=== PATIENT | male | born 1965 | race Hispanic/Latino ===

== ENCOUNTER 2021-09-24 07:49 | Emergency (ER) | payer SELFPAY ==
[2021-09-24 08:35] LABS: #Eosinphils 0.1 thou/uL (0.0-0.7); #Lymphocytes 0.4 thou/uL (1.20-3.40); #Monocytes 0.2 thou/uL (0.11-0.59); %Basophils 0.4 % (0.0-1.0); %Eosinophils 5.5 % (0.0-10.0); %Lymphocytes 25.2 % (21.0-51.0); %Monocytes 9.6 % (0.0-10.0); %Neutrophils 59.3 % (42.0-75.0); Hemoglobin 9.3 g/dL (14.0-18.0); Mean Corpuscular HGB CONC 33.2 g/dL (32.0-36.0); Mean Corpuscular Hemoglobin 33.8 pg (27.0-31.0); Mean Platelet Volume 8.3 fL (7.4-10.4); Platelet Count 53 thou/uL (130-400); RBC Distribution Width 15.8 % (11.5-14.5); Red Blood Cell (RBC) Count 2.74 mill/uL (4.70-6.10); White Blood Cell (WBC) Count 1.7 thou/uL (4.8-10.8)
[2021-09-24 09:15] LABS: ALT (SGPT) 9 U/L (8-55); AST (SGOT) 23 U/L (5-34); Albumin 2.2 g/dL (3.5-5.0); Alkaline Phosphatase 115 U/L (40-110); Anion Gap 10 mmol/L (10-20); BUN (Urea Nitrogen) 14 mg/dL (8.4-25.7); Bilirubin, Total 2.8 mg/dL (0.2-1.2); Calc. Creatinine Clearance 0 mL/min (70-130); Calcium 8.2 mg/dL (7.8-10.44); Carbon Dioxide 22 mmol/L (22-29); Chloride 104 mmol/L (98-107); Globulin 3.7 g/dL (2.4-3.5); Glucose 88 mg/dL (70-105); Potassium 4.3 mmol/L (3.5-5.1); Protein, Total 5.9 g/dL (6.0-8.3); Sodium 132 mmol/L (136-145)
[2021-09-24 11:47] LABS: INR-International Normal Ratio 1.9; Prothrombin Time 21.8 sec (12.0-14.7)
[2021-09-24] MEDS ORDERED: Sodium Bicarbonate 2.5 MEQ/5 ML VIAL ONE (13:39)
[2021-09-24] MEDS ORDERED: Lidocaine 1% PF 5 ML VIAL ONE (13:39)
== END 2021-09-24 15:15 | disposition home or self-care (01) ==
LOC: ERS 07:49
DX: R18.8 Other ascites (principal)
CPT/HCPCS: 36415; 49083; 80053; 85025; 85610; 85730

== ENCOUNTER 2021-10-04 08:01 | Emergency (ER) | payer SELFPAY ==
[2021-10-04 10:14] LABS: #Lymphocytes 0.3 thou/uL (1.20-3.40); #Monocytes 0.2 thou/uL (0.11-0.59); #Neutrophils 4.1 thou/uL (1.40-6.50); %Eosinophils 0.3 % (0.0-10.0); %Lymphocytes 5.8 % (21.0-51.0); %Monocytes 4.8 % (0.0-10.0); %Neutrophils 89.1 % (42.0-75.0); Hemoglobin 10.6 g/dL (14.0-18.0); Mean Corpuscular HGB CONC 32.1 g/dL (32.0-36.0); Mean Corpuscular Hemoglobin 32.2 pg (27.0-31.0); Mean Platelet Volume 9.1 fL (7.4-10.4); Platelet Count 90 thou/uL (130-400); RBC Distribution Width 15.6 % (11.5-14.5); Red Blood Cell (RBC) Count 3.28 mill/uL (4.70-6.10); White Blood Cell (WBC) Count 4.6 thou/uL (4.8-10.8)
[2021-10-04 10:26] LABS: ALT (SGPT) 9 U/L (8-55); AST (SGOT) 22 U/L (5-34); Albumin 2.3 g/dL (3.5-5.0); Alkaline Phosphatase 118 U/L (40-110); Anion Gap 13 mmol/L (10-20); BUN (Urea Nitrogen) 17 mg/dL (8.4-25.7); Bilirubin, Total 3.5 mg/dL (0.2-1.2); Calc. Creatinine Clearance 0 mL/min (70-130); Calcium 8.1 mg/dL (7.8-10.44); Carbon Dioxide 19 mmol/L (22-29); Chloride 105 mmol/L (98-107); Globulin 4.2 g/dL (2.4-3.5); Glucose 103 mg/dL (70-105); Lipase 29 U/L (8-78); Potassium 4.5 mmol/L (3.5-5.1); Protein, Total 6.5 g/dL (6.0-8.3); Sodium 132 mmol/L (136-145)
[2021-10-04 13:42] LABS: Bilirubin 1+ (Negative); Blood, Urine Negative (Negative); Clarity Turbid (Clear); Glucose, Urine (Dipstick) Normal (Negative); Ketone, Urine Trace mg/dL (Negative); Leukocyte Negative Leu/uL (Negative); Nitrite Negative (Negative); Protein, Urine (Dipstick) 50 mg/dL (Neg-Trace); Specific Gravity, Urine 1.031 (1.002-1.036); Squamous Epithelial 0-3 HPF (0-3); Urobilinogen 3 mg/dL (Less than 2); WBC/HPF 0-3 HPF (0-3)
[2021-10-04 13:50] LABS: Bacteria/HPF None Seen HPF (None Seen); Mucous/LPF 1+ LPF (<2+); RBC/HPF 0-3 HPF (0-3)
[2021-10-04] MEDS ORDERED: Lidocaine 1% w/Epinephrine 1:100K 20 ML VIAL ONE (15:01)
== END 2021-10-04 16:16 | disposition home or self-care (01) ==
LOC: ERS 08:01
DX: K70.31 Alcoholic cirrhosis of liver with ascites (principal); R51.9 Headache, unspecified
CPT/HCPCS: 36415; 49083; 80053; 81003; 81015; 83690; 85025

== ENCOUNTER 2021-10-20 08:02 | Emergency (ER) | payer SELFPAY ==
[2021-10-20 09:12] LABS: #Eosinphils 0.2 thou/uL (0.0-0.7); #Lymphocytes 0.6 thou/uL (1.20-3.40); #Monocytes 0.4 thou/uL (0.11-0.59); #Neutrophils 1.7 thou/uL (1.40-6.50); %Basophils 0.2 % (0.0-1.0); %Lymphocytes 20.9 % (21.0-51.0); %Monocytes 14.7 % (0.0-10.0); %Neutrophils 58.1 % (42.0-75.0); Hemoglobin 10.3 g/dL (14.0-18.0); Mean Corpuscular HGB CONC 33.7 g/dL (32.0-36.0); Mean Corpuscular Hemoglobin 32.6 pg (27.0-31.0); Mean Corpuscular Volume 96.5 fL (78.0-98.0); Mean Platelet Volume 8.4 fL (7.4-10.4); Platelet Count 87 thou/uL (130-400); RBC Distribution Width 17.5 % (11.5-14.5); Red Blood Cell (RBC) Count 3.15 mill/uL (4.70-6.10); White Blood Cell (WBC) Count 2.9 thou/uL (4.8-10.8)
[2021-10-20 09:30] LABS: PTT 36.2 sec (22.9-36.1); Prothrombin Time 23.1 sec (12.0-14.7)
[2021-10-20 09:36] LABS: ALT (SGPT) 11 U/L (8-55); AST (SGOT) 26 U/L (5-34); Albumin 2.2 g/dL (3.5-5.0); Alkaline Phosphatase 124 U/L (40-110); Anion Gap 10 mmol/L (10-20); BUN (Urea Nitrogen) 15 mg/dL (8.4-25.7); Bilirubin, Total 2.9 mg/dL (0.2-1.2); Calc. Creatinine Clearance 0 mL/min (70-130); Calcium 8.3 mg/dL (7.8-10.44); Carbon Dioxide 22 mmol/L (22-29); Chloride 105 mmol/L (98-107); Globulin 4.5 g/dL (2.4-3.5); Glucose 90 mg/dL (70-105); Lipase 60 U/L (8-78); Potassium 4.2 mmol/L (3.5-5.1); Protein, Total 6.7 g/dL (6.0-8.3); Sodium 133 mmol/L (136-145)
[2021-10-20] MEDS ORDERED: Lidocaine 1% w/Epinephrine 1:100K 20 ML VIAL ONE (11:24)
== END 2021-10-20 12:15 | disposition home or self-care (01) ==
LOC: ERS 08:02
DX: R10.9 Unspecified abdominal pain (principal); R18.8 Other ascites; Z79.899 Other long term (current) drug therapy
CPT/HCPCS: 36415; 80053; 83690; 85025; 85610; 85730; 94760

== ENCOUNTER 2021-10-21 07:31 | Outpatient (CLI) | payer OTHER | END 2021-10-21 07:32 | disposition home or self-care (01) | LOC: BICULT 07:31 | PROVIDERS: ATTEND Physician Assistant Medical | DX: K70.30 Alcoholic cirrhosis of liver without ascites (principal); I85.10 Secondary esophageal varices without bleeding; K72.90 Hepatic failure, unspecified without coma; R18.8 Other ascites; D63.8 Anemia in other chronic diseases classified elsewhere; K80.20 Calculus of gallbladder without cholecystitis without obstruction; I81 Portal vein thrombosis | CPT/HCPCS: 76705 ==

== ENCOUNTER 2021-11-15 12:03 | Emergency (ER) | payer SELFPAY ==
[2021-11-15 12:52] LABS: #Eosinphils 0.1 thou/uL (0.0-0.7); #Lymphocytes 0.5 thou/uL (1.20-3.40); #Monocytes 0.4 thou/uL (0.11-0.59); #Neutrophils 1.8 thou/uL (1.40-6.50); %Basophils 0.8 % (0.0-1.0); %Lymphocytes 17.9 % (21.0-51.0); %Monocytes 12.7 % (0.0-10.0); %Neutrophils 65.6 % (42.0-75.0); Hemoglobin 9.8 g/dL (14.0-18.0); Mean Corpuscular HGB CONC 33.8 g/dL (32.0-36.0); Mean Corpuscular Hemoglobin 33.6 pg (27.0-31.0); Mean Corpuscular Volume 99.2 fL (78.0-98.0); Mean Platelet Volume 8.8 fL (7.4-10.4); Platelet Count 75 thou/uL (130-400); RBC Distribution Width 14.8 % (11.5-14.5); Red Blood Cell (RBC) Count 2.92 mill/uL (4.70-6.10); White Blood Cell (WBC) Count 2.8 thou/uL (4.8-10.8)
[2021-11-15 12:59] LABS: INR-International Normal Ratio 1.7; PTT 41.2 sec (22.9-36.1); Prothrombin Time 20.4 sec (12.0-14.7)
[2021-11-15 13:08] LABS: ALT (SGPT) 8 U/L (8-55); AST (SGOT) 22 U/L (5-34); Albumin 2.2 g/dL (3.5-5.0); Alkaline Phosphatase 111 U/L (40-110); Anion Gap 11 mmol/L (10-20); BUN (Urea Nitrogen) 11 mg/dL (8.4-25.7); Bilirubin, Total 2.7 mg/dL (0.2-1.2); Calc. Creatinine Clearance 0 mL/min (70-130); Calcium 8.3 mg/dL (7.8-10.44); Carbon Dioxide 21 mmol/L (22-29); Chloride 104 mmol/L (98-107); Estimated GFR 58; Globulin 4.5 g/dL (2.4-3.5); Glucose 117 mg/dL (70-105); Lipase 66 U/L (8-78); Potassium 4.3 mmol/L (3.5-5.1); Protein, Total 6.7 g/dL (6.0-8.3); Sodium 132 mmol/L (136-145)
[2021-11-15 13:18] LABS: Bilirubin Negative (Negative); Blood, Urine Negative (Negative); Clarity Clear (Clear); Glucose, Urine (Dipstick) Normal (Negative); Ketone, Urine Negative (Negative); Leukocyte Negative Leu/uL (Negative); Nitrite Negative (Negative); Protein, Urine (Dipstick) Negative (Neg-Trace); Specific Gravity, Urine 1.011 (1.002-1.036); Urobilinogen Normal mg/dL (Less than 2)
== END 2021-11-15 14:28 | disposition home or self-care (01) ==
LOC: ERS 12:03
DX: K05.00 Acute gingivitis, plaque induced (principal); K72.10 Chronic hepatic failure without coma; Z79.899 Other long term (current) drug therapy
CPT/HCPCS: 80053; 81003; 83690; 85025; 85610; 85730; 99284

== ENCOUNTER 2021-12-27 08:41 | Emergency (ER) | payer SELFPAY ==
[2021-12-27 09:54] LABS: #Eosinphils 0.1 thou/uL (0.0-0.7); #Lymphocytes 0.5 thou/uL (1.20-3.40); #Monocytes 0.2 thou/uL (0.11-0.59); #Neutrophils 1.4 thou/uL (1.40-6.50); %Basophils 0.4 % (0.0-1.0); %Eosinophils 4.5 % (0.0-10.0); %Lymphocytes 21.1 % (21.0-51.0); %Monocytes 10.8 % (0.0-10.0); %Neutrophils 63.2 % (42.0-75.0); Hemoglobin 10.3 g/dL (14.0-18.0); Mean Corpuscular HGB CONC 33.2 g/dL (32.0-36.0); Mean Corpuscular Hemoglobin 33.2 pg (27.0-31.0); Mean Platelet Volume 9.1 fL (7.4-10.4); Platelet Count 68 thou/uL (130-400); RBC Distribution Width 13.8 % (11.5-14.5); Red Blood Cell (RBC) Count 3.09 mill/uL (4.70-6.10); White Blood Cell (WBC) Count 2.2 thou/uL (4.8-10.8)
[2021-12-27] MEDS ORDERED: Lidocaine 1% PF 5 ML VIAL ONE (10:05)
[2021-12-27 10:10] LABS: ALT (SGPT) 8 U/L (8-55); AST (SGOT) 23 U/L (5-34); Albumin 2.4 g/dL (3.5-5.0); Alkaline Phosphatase 116 U/L (40-110); Anion Gap 11 mmol/L (10-20); BUN (Urea Nitrogen) 16 mg/dL (8.4-25.7); Bilirubin, Total 2.1 mg/dL (0.2-1.2); Calc. Creatinine Clearance 0 mL/min (70-130); Calcium 8.4 mg/dL (7.8-10.44); Carbon Dioxide 22 mmol/L (22-29); Chloride 105 mmol/L (98-107); Estimated GFR 75; Globulin 4.7 g/dL (2.4-3.5); Glucose 99 mg/dL (70-105); Potassium 4.1 mmol/L (3.5-5.1); Protein, Total 7.1 g/dL (6.0-8.3); Sodium 134 mmol/L (136-145)
[2021-12-27] MEDS ORDERED: Albumin 25% 25 GM/100 ML BOT IVPB SCH (10:45)
== END 2021-12-27 14:19 | disposition home or self-care (01) ==
LOC: ERS 08:41
DX: R18.8 Other ascites (principal); D61.818 Other pancytopenia; Z79.899 Other long term (current) drug therapy
CPT/HCPCS: 49082; 80053; 85025; 96365; 96366; P9047

== ENCOUNTER 2021-12-29 17:25 | Emergency (ER) | payer SELFPAY | END 2021-12-29 19:10 | disposition home or self-care (01) | LOC: ERS 17:25 | DX: B02.9 Zoster without complications (principal); R14.0 Abdominal distension (gaseous) | CPT/HCPCS: 99282 ==

== ENCOUNTER 2022-05-13 07:46 | Day surgery (SDC) | payer OTHER ==
[2022-05-12 10:01] VITALS: BMI 25.3
[2022-05-13 08:21] LABS: INR-International Normal Ratio 1.7; PTT 40.2 sec (22.9-36.1); Prothrombin Time 21.1 sec (12.0-14.7)
[2022-05-13 08:22] LABS: #Eosinphils 0.2 thou/uL (0.0-0.7); #Lymphocytes 0.7 thou/uL (1.20-3.40); #Monocytes 0.3 thou/uL (0.11-0.59); #Neutrophils 2.1 thou/uL (1.40-6.50); %Basophils 0.5 % (0.0-1.0); %Eosinophils 7.3 % (0.0-10.0); %Monocytes 9.7 % (0.0-10.0); %Neutrophils 62.6 % (42.0-75.0); Hemoglobin 11.2 g/dL (14.0-18.0); Mean Corpuscular HGB CONC 33.5 g/dL (32.0-36.0); Mean Corpuscular Hemoglobin 33.7 pg (27.0-31.0); Mean Platelet Volume 8.6 fL (7.4-10.4); Platelet Count 77 10x3/uL (130-400); RBC Distribution Width 14.8 % (11.5-14.5); Red Blood Cell (RBC) Count 3.34 mill/uL (4.70-6.10); White Blood Cell (WBC) Count 3.4 10x3/uL (4.8-10.8)
[2022-05-13 10:01] VITALS: BP 126/64; TEMP 98
== END 2022-05-13 09:55 | disposition home or self-care (01) ==
LOC: ULT 07:46
PROVIDERS: ATTEND Internal Medicine Gastroenterology
PROC: 0W9G3ZZ Drainage of Peritoneal Cavity, Percutaneous Approach (ICD-10-PCS; principal; 2022-05-13)
DX: K70.31 Alcoholic cirrhosis of liver with ascites (principal); F10.21 Alcohol dependence, in remission; Z79.899 Other long term (current) drug therapy
CPT/HCPCS: 49083; 85025; 85610; 85730

== ENCOUNTER 2022-06-20 23:59 | Emergency (ER) | payer OTHER ==
[2022-06-21 00:48] LABS: #Eosinphils 0.1 thou/uL (0.0-0.7); #Lymphocytes 0.5 thou/uL (1.20-3.40); #Monocytes 0.3 thou/uL (0.11-0.59); #Neutrophils 1.8 thou/uL (1.40-6.50); %Basophils 0.6 % (0.0-1.0); %Eosinophils 3.3 % (0.0-10.0); %Lymphocytes 19.1 % (21.0-51.0); %Monocytes 11.6 % (0.0-10.0); %Neutrophils 65.5 % (42.0-75.0); Hemoglobin 11.1 g/dL (14.0-18.0); Mean Corpuscular HGB CONC 34.9 g/dL (32.0-36.0); Mean Corpuscular Hemoglobin 34.8 pg (27.0-31.0); Mean Corpuscular Volume 99.9 fl (78.0-98.0); Mean Platelet Volume 8.5 fL (7.4-10.4); Platelet Count 59 10x3/uL (130-400); RBC Distribution Width 14.3 % (11.5-14.5); Red Blood Cell (RBC) Count 3.19 mill/uL (4.70-6.10); White Blood Cell (WBC) Count 2.8 10x3/uL (4.8-10.8)
[2022-06-21 01:09] LABS: ALT (SGPT) 14 U/L (8-55); AST (SGOT) 26 U/L (5-34); Albumin 3.2 g/dL (3.5-5.0); Alkaline Phosphatase 117 U/L (40-110); Anion Gap 13 mmol/L (10-20); BUN (Urea Nitrogen) 21 mg/dL (8.4-25.7); Bilirubin, Total 1.8 mg/dL (0.2-1.2); Calc. Creatinine Clearance 0 mL/min (70-130); Calcium 9.1 mg/dL (7.8-10.44); Carbon Dioxide 19 mmol/L (22-29); Chloride 103 mmol/L (98-107); Estimated GFR 46; Globulin 4.8 g/dL (2.4-3.5); Glucose 100 mg/dL (70-105); Potassium 4.4 mmol/L (3.5-5.1); Sodium 131 mmol/L (136-145)
[2022-06-21] MEDS ORDERED: Tranexamic Acid 1,000 MG/10 ML VIAL ONE (05:37)
== END 2022-06-21 08:07 | disposition home or self-care (01) ==
LOC: ERS 23:59
DX: K06.9 Disorder of gingiva and edentulous alveolar ridge, unspecified (principal); D69.6 Thrombocytopenia, unspecified; D72.819 Decreased white blood cell count, unspecified; I12.9 Hypertensive chronic kidney disease with stage 1 through stage 4 chronic kidney disease, or unspecified chronic kidney disease; N18.30 Chronic kidney disease, stage 3 unspecified
CPT/HCPCS: 36415; 36430; 80053; 85025; 86850; 86900; 86901; 96374; P9035

== ENCOUNTER 2022-07-02 12:24 | Emergency (ER) | payer OTHER ==
[2022-07-02 13:26] LABS: #Eosinphils 0.1 thou/uL (0.0-0.7); #Lymphocytes 0.5 thou/uL (1.20-3.40); #Monocytes 0.3 thou/uL (0.11-0.59); #Neutrophils 1.8 thou/uL (1.40-6.50); %Eosinophils 2.5 % (0.0-10.0); %Lymphocytes 18.4 % (21.0-51.0); %Monocytes 9.9 % (0.0-10.0); %Neutrophils 69.3 % (42.0-75.0); Hemoglobin 11.5 g/dL (14.0-18.0); Mean Corpuscular HGB CONC 34.2 g/dL (32.0-36.0); Mean Corpuscular Hemoglobin 34.5 pg (27.0-31.0); Mean Platelet Volume 8.6 fL (7.4-10.4); Platelet Count 66 10x3/uL (130-400); RBC Distribution Width 14.3 % (11.5-14.5); Red Blood Cell (RBC) Count 3.33 mill/uL (4.70-6.10); White Blood Cell (WBC) Count 2.6 10x3/uL (4.8-10.8)
[2022-07-02 13:34] LABS: INR-International Normal Ratio 1.6; PTT 35.3 sec (22.9-36.1); Prothrombin Time 19.5 sec (12.0-14.7)
[2022-07-02 13:47] LABS: ALT (SGPT) 13 U/L (8-55); AST (SGOT) 27 U/L (5-34); Albumin 3.2 g/dL (3.5-5.0); Alkaline Phosphatase 109 U/L (40-110); Anion Gap 12 mmol/L (10-20); BUN (Urea Nitrogen) 17 mg/dL (8.4-25.7); Bilirubin, Total 2.2 mg/dL (0.2-1.2); Calc. Creatinine Clearance 0 mL/min (70-130); Calcium 9.2 mg/dL (7.8-10.44); Carbon Dioxide 20 mmol/L (22-29); Chloride 101 mmol/L (98-107); Estimated GFR 55; Globulin 4.6 g/dL (2.4-3.5); Glucose 101 mg/dL (70-105); Potassium 4.4 mmol/L (3.5-5.1); Protein, Total 7.8 g/dL (6.0-8.3); Sodium 129 mmol/L (136-145)
[2022-07-02 15:08] LABS: Bilirubin Negative (Negative); Blood, Urine Negative (Negative); Clarity Clear (Clear); Glucose, Urine (Dipstick) Normal (Negative); Ketone, Urine Negative (Negative); Leukocyte Negative Leu/uL (Negative); Nitrite Negative (Negative); Protein, Urine (Dipstick) Negative (Neg-Trace); Specific Gravity, Urine 1.006 (1.002-1.036); Urobilinogen Normal mg/dL (Less than 2)
== END 2022-07-02 14:59 | disposition home or self-care (01) ==
LOC: ERS 12:24
DX: R18.8 Other ascites (principal); D72.819 Decreased white blood cell count, unspecified; I12.9 Hypertensive chronic kidney disease with stage 1 through stage 4 chronic kidney disease, or unspecified chronic kidney disease; N18.30 Chronic kidney disease, stage 3 unspecified
CPT/HCPCS: 36415; 80053; 81003; 82140; 85025; 85610; 85730; 93005

== ENCOUNTER 2022-07-17 07:32 | Emergency (ER) | payer OTHER ==
[2022-07-17 08:28] LABS: #Eosinphils 0.2 thou/uL (0.0-0.7); #Lymphocytes 0.6 thou/uL (1.20-3.40); #Monocytes 0.2 thou/uL (0.11-0.59); #Neutrophils 1.3 thou/uL (1.40-6.50); %Basophils 1.1 % (0.0-1.0); %Eosinophils 7.9 % (0.0-10.0); %Lymphocytes 26.9 % (21.0-51.0); %Monocytes 9.8 % (0.0-10.0); %Neutrophils 54.3 % (42.0-75.0); Hemoglobin 11.2 g/dL (14.0-18.0); Mean Corpuscular HGB CONC 34.4 g/dL (32.0-36.0); Mean Corpuscular Hemoglobin 34.9 pg (27.0-31.0); Platelet Count 61 10x3/uL (130-400); RBC Distribution Width 13.7 % (11.5-14.5); White Blood Cell (WBC) Count 2.4 10x3/uL (4.8-10.8)
[2022-07-17 08:44] LABS: ALT (SGPT) 12 U/L (8-55); AST (SGOT) 26 U/L (5-34); Albumin 2.8 g/dL (3.5-5.0); Alkaline Phosphatase 100 U/L (40-110); Anion Gap 11 mmol/L (10-20); BUN (Urea Nitrogen) 21 mg/dL (8.4-25.7); Bilirubin, Total 1.8 mg/dL (0.2-1.2); Calc. Creatinine Clearance 0 mL/min (70-130); Calcium 8.8 mg/dL (7.8-10.44); Carbon Dioxide 19 mmol/L (22-29); Chloride 106 mmol/L (98-107); Estimated GFR 68; Globulin 4.4 g/dL (2.4-3.5); Glucose 95 mg/dL (70-105); Lipase 65 U/L (8-78); Potassium 4.2 mmol/L (3.5-5.1); Protein, Total 7.2 g/dL (6.0-8.3); Sodium 132 mmol/L (136-145)
[2022-07-17 08:53] LABS: INR-International Normal Ratio 1.5; Prothrombin Time 18.8 sec (12.0-14.7)
[2022-07-17 08:54] LABS: PTT 37.9 sec (22.9-36.1)
[2022-07-17 09:52] LABS: Bilirubin Negative (Negative); Blood, Urine Small (Negative); Glucose, Urine (Dipstick) Negative (Negative); Ketone, Urine Trace mg/dL (Negative); Leukocyte Negative (Negative); Nitrite Negative (Negative); Protein, Urine (Dipstick) Negative (Neg-Trace); Specific Gravity, Urine 1.025 (1.005-1.030); Urobilinogen 0.2 mg/dL (Less than 2)
[2022-07-17 09:58] LABS: Clarity Clear (Clear)
[2022-07-17 10:13] LABS: Bacteria/HPF None Seen HPF (None Seen); RBC/HPF 0-3 HPF (0-3); WBC/HPF None Seen HPF (0-3)
== END 2022-07-17 10:09 | disposition home or self-care (01) ==
LOC: ERS 07:32
DX: R18.8 Other ascites (principal); K74.60 Unspecified cirrhosis of liver; D72.819 Decreased white blood cell count, unspecified; I12.9 Hypertensive chronic kidney disease with stage 1 through stage 4 chronic kidney disease, or unspecified chronic kidney disease; N18.30 Chronic kidney disease, stage 3 unspecified
CPT/HCPCS: 36415; 71045; 80053; 81003; 81015; 82140; 83690; 84484; 85025; 85610; 85730; 93005; 94760

== ENCOUNTER 2022-09-11 08:38 | Day surgery (SDC) | payer OTHER ==
[2022-09-08 14:14] VITALS: BMI 29.2
[2022-09-11] MEDS ORDERED: Albumin 25% 100 ML ONE (08:47)
[2022-09-11] MEDS ORDERED: Lidocaine 1% PF 5 ML VIAL ONE (08:47)
[2022-09-11] MEDS ORDERED: Sodium Bicarbonate 2.5 MEQ/5 ML VIAL ONE (08:47)
[2022-09-11 08:48] LABS: #Eosinphils 0.1 thou/uL (0.0-0.7); #Lymphocytes 0.5 thou/uL (1.20-3.40); #Monocytes 0.4 thou/uL (0.11-0.59); #Neutrophils 1.7 thou/uL (1.40-6.50); %Lymphocytes 16.9 % (21.0-51.0); %Monocytes 13.8 % (0.0-10.0); %Neutrophils 64.3 % (42.0-75.0); Hemoglobin 10.8 g/dL (14.0-18.0); Mean Corpuscular Hemoglobin 34.4 pg (27.0-31.0); Platelet Count 59 10x3/uL (130-400); RBC Distribution Width 13.4 % (11.5-14.5); Red Blood Cell (RBC) Count 3.13 mill/uL (4.70-6.10); White Blood Cell (WBC) Count 2.7 10x3/uL (4.8-10.8)
[2022-09-11 09:04] LABS: INR-International Normal Ratio 1.6; Prothrombin Time 19.8 sec (12.0-14.7)
[2022-09-11 09:05] LABS: PTT 37.4 sec (22.9-36.1)
[2022-09-11 10:30] VITALS: BP 122/75; TEMP 98.2
== END 2022-09-11 10:31 | disposition home or self-care (01) ==
LOC: ULT 08:38
PROVIDERS: ATTEND Internal Medicine Gastroenterology
PROC: 0W9G3ZZ Drainage of Peritoneal Cavity, Percutaneous Approach (ICD-10-PCS; principal; 2022-09-11)
DX: R18.8 Other ascites (principal)
CPT/HCPCS: 49083; 85025; 85610; 85730; P9047

== ENCOUNTER 2022-09-30 08:53 | Day surgery (SDC) | payer OTHER ==
[2022-09-30] MEDS ORDERED: Albumin 25% 100 ML ONE (10:45)
[2022-09-30] MEDS ORDERED: Sodium Bicarbonate 2.5 MEQ/5 ML VIAL ONE (10:45)
[2022-09-30] MEDS ORDERED: Lidocaine 1% PF 5 ML VIAL ONE (10:45)
[2022-09-30] MEDS ORDERED: Albumin 25% 25 GM/100 ML BOT IVPB SCH (11:45)
[2022-09-30 12:30] VITALS: BP 125/74
== END 2022-09-30 12:30 | disposition home or self-care (01) ==
LOC: ULT 08:53
PROVIDERS: ATTEND Internal Medicine Gastroenterology
PROC: 0W9G3ZZ Drainage of Peritoneal Cavity, Percutaneous Approach (ICD-10-PCS; principal; 2022-09-30)
DX: K70.31 Alcoholic cirrhosis of liver with ascites (principal); I12.9 Hypertensive chronic kidney disease with stage 1 through stage 4 chronic kidney disease, or unspecified chronic kidney disease; N18.31 Chronic kidney disease, stage 3a
CPT/HCPCS: 49083; P9047

== ENCOUNTER 2022-10-28 09:46 | Day surgery (SDC) | payer OTHER ==
[2022-10-28] MEDS ORDERED: Albumin 25% 100 ML ONE (11:03)
[2022-10-28] MEDS ORDERED: Lidocaine 1% PF 5 ML VIAL ONE (11:03)
[2022-10-28] MEDS ORDERED: Sodium Bicarbonate 2.5 MEQ/5 ML VIAL ONE (11:03)
[2022-10-28] MEDS ORDERED: Albumin 25% 25 GM/100 ML BOT IVPB SCH (11:45)
[2022-10-28 15:09] VITALS: BP 115/57
== END 2022-10-28 12:00 | disposition home or self-care (01) ==
LOC: ULT 09:46
PROVIDERS: ATTEND Internal Medicine Gastroenterology
PROC: 0W9G30Z Drainage of Peritoneal Cavity with Drainage Device, Percutaneous Approach (ICD-10-PCS; principal; 2022-10-28)
DX: R18.8 Other ascites (principal)
CPT/HCPCS: 49083; P9047

== ENCOUNTER → 2022-11-04 | Day surgery (SDC) | payer OTHER ==
[~2022-11-04] MED LIST: Albumin 25% 100 ML ONE; Lidocaine 1% PF 5 ML VIAL ONE; Sodium Bicarbonate 2.5 MEQ/5 ML VIAL ONE
== END ==
LOC: ULT 08:00
PROVIDERS: ATTEND Internal Medicine Gastroenterology
DX: R18.8 Other ascites (principal)
CPT/HCPCS: 49083; P9047

== ENCOUNTER 2022-11-18 09:48 | Day surgery (SDC) | payer OTHER ==
[2022-11-18 10:07] LABS: #Eosinphils 0.1 thou/uL (0.0-0.7); #Monocytes 0.3 thou/uL (0.11-0.59); #Neutrophils 2.3 thou/uL (1.40-6.50); %Basophils 0.6 % (0.0-1.0); %Eosinophils 4.1 % (0.0-10.0); %Lymphocytes 14.2 % (21.0-51.0); %Monocytes 9.5 % (0.0-10.0); %Neutrophils 71.3 % (42.0-75.0); Hemoglobin 10.7 g/dL (14.0-18.0); Mean Corpuscular HGB CONC 34.3 g/dL (32.0-36.0); Mean Corpuscular Hemoglobin 33.1 pg (27.0-31.0); Mean Corpuscular Volume 96.6 fl (78.0-98.0); Mean Platelet Volume 11.3 fL (7.4-10.4); RBC Distribution Width 15.3 % (11.5-14.5); Red Blood Cell (RBC) Count 3.23 mill/uL (4.70-6.10); White Blood Cell (WBC) Count 3.2 10x3/uL (4.8-10.8)
[2022-11-18 10:08] LABS: Platelet Count 62 10x3/uL (130-400)
[2022-11-18 10:13] LABS: INR-International Normal Ratio 1.5; PTT 35.8 sec (22.9-36.1); Prothrombin Time 18.7 sec (12.0-14.7)
[2022-11-18] MEDS ORDERED: Lidocaine 1% PF 5 ML VIAL ONE (10:32)
[2022-11-18] MEDS ORDERED: Albumin 25% 100 ML ONE (10:32)
[2022-11-18] MEDS ORDERED: Sodium Bicarbonate 2.5 MEQ/5 ML VIAL ONE (10:32)
[2022-11-18] MEDS ORDERED: Albumin 25% 25 GM/100 ML BOT IVPB SCH (13:30)
[2022-11-18 13:57] VITALS: BP 93/49
== END 2022-11-18 11:50 | disposition home or self-care (01) ==
LOC: ULT 09:48
PROVIDERS: ATTEND Internal Medicine Gastroenterology
DX: R18.8 Other ascites (principal)
CPT/HCPCS: 49083; 85025; 85610; 85730; P9047

== ENCOUNTER → 2022-11-25 | Day surgery (SDC) | payer OTHER | LOC: ULT 09:52 | PROVIDERS: ATTEND Internal Medicine Gastroenterology | PROC: 0W9G30Z Drainage of Peritoneal Cavity with Drainage Device, Percutaneous Approach (ICD-10-PCS; principal; 2022-11-25) | DX: K70.31 Alcoholic cirrhosis of liver with ascites (principal) | CPT/HCPCS: 49083 ==

== ENCOUNTER 2022-12-09 09:51 | Day surgery (SDC) | payer OTHER ==
[2022-12-09] MEDS ORDERED: Albumin 25% 100 ML ONE (10:29)
[2022-12-09] MEDS ORDERED: Lidocaine 1% PF 5 ML VIAL ONE (10:36)
[2022-12-09] MEDS ORDERED: Sodium Bicarbonate 2.5 MEQ/5 ML VIAL ONE (10:36)
== END 2022-12-09 11:30 | disposition home or self-care (01) ==
LOC: ULT 09:51
PROVIDERS: ATTEND Internal Medicine Gastroenterology
DX: R18.8 Other ascites (principal)
CPT/HCPCS: 49083; P9047

== ENCOUNTER → 2022-12-15 | Day surgery (SDC) | payer OTHER | LOC: ULT 11:47 | PROVIDERS: ATTEND Internal Medicine Gastroenterology | DX: R18.8 Other ascites (principal); K74.60 Unspecified cirrhosis of liver | CPT/HCPCS: 49083; P9047 ==

== ENCOUNTER 2022-12-23 09:48 | Day surgery (SDC) | payer OTHER ==
[2022-12-23] MEDS ORDERED: Sodium Bicarbonate 2.5 MEQ/5 ML VIAL ONE (10:27)
[2022-12-23] MEDS ORDERED: Lidocaine 1% PF 5 ML VIAL ONE (10:27)
[2022-12-23] MEDS ORDERED: Albumin 25% 100 ML ONE (10:27)
[2022-12-23 10:31] VITALS: BMI 29.2
[2022-12-23 10:33] LABS: #Eosinphils 0.1 thou/uL (0.0-0.7); #Monocytes 0.4 thou/uL (0.11-0.59); #Neutrophils 2.3 thou/uL (1.40-6.50); %Basophils 0.3 % (0.0-1.0); %Eosinophils 3.9 % (0.0-10.0); %Lymphocytes 15.6 % (21.0-51.0); %Monocytes 10.5 % (0.0-10.0); %Neutrophils 69.7 % (42.0-75.0); Hematocrit 30.2 % (42.0-52.0); Hemoglobin 10.4 g/dL (14.0-18.0); Mean Corpuscular HGB CONC 34.4 g/dL (32.0-36.0); Mean Corpuscular Hemoglobin 32.4 pg (27.0-31.0); Mean Corpuscular Volume 94.1 fl (78.0-98.0); Mean Platelet Volume 10.4 fL (7.4-10.4); RBC Distribution Width 14.6 % (11.5-14.5); Red Blood Cell (RBC) Count 3.21 mill/uL (4.70-6.10); White Blood Cell (WBC) Count 3.3 10x3/uL (4.8-10.8)
[2022-12-23 10:37] LABS: Platelet Count 70 10x3/uL (130-400)
[2022-12-23 10:38] LABS: INR-International Normal Ratio 1.5; PTT 35.2 sec (22.9-36.1); Prothrombin Time 18.7 sec (12.0-14.7)
== END 2022-12-23 12:30 | disposition home or self-care (01) ==
LOC: ULT 09:48
PROVIDERS: ATTEND Internal Medicine Gastroenterology
DX: R18.8 Other ascites (principal)
CPT/HCPCS: 49083; 85025; 85610; 85730; P9047

== ENCOUNTER → 2022-12-30 | Day surgery (SDC) | payer OTHER | LOC: ULT 10:00 | PROVIDERS: ATTEND Internal Medicine Gastroenterology | PROC: 0W9G30Z Drainage of Peritoneal Cavity with Drainage Device, Percutaneous Approach (ICD-10-PCS; principal; 2022-12-30) | DX: K70.31 Alcoholic cirrhosis of liver with ascites (principal) | CPT/HCPCS: 49083; P9047 ==

== ENCOUNTER 2023-01-06 10:06 | Day surgery (SDC) | payer OTHER ==
[2023-01-06 12:10] VITALS: BP 113/63; TEMP 98.1
== END 2023-01-06 11:45 | disposition home or self-care (01) ==
LOC: ULT 10:06
PROVIDERS: ATTEND Internal Medicine Gastroenterology
PROC: 0W9G3ZZ Drainage of Peritoneal Cavity, Percutaneous Approach (ICD-10-PCS; principal; 2023-01-06)
DX: R18.8 Other ascites (principal)
CPT/HCPCS: 49083

== ENCOUNTER → 2023-01-13 | Day surgery (SDC) | payer OTHER, MEDICARE ==
[2023-01-13 11:29] VITALS: BP 125/76; TEMP 97.6
== END ==
LOC: ULT 09:55
PROVIDERS: ATTEND Internal Medicine Gastroenterology
PROC: 0W9G3ZZ Drainage of Peritoneal Cavity, Percutaneous Approach (ICD-10-PCS; principal; 2023-01-13)
DX: K70.31 Alcoholic cirrhosis of liver with ascites (principal)
CPT/HCPCS: 49083

== ENCOUNTER 2023-01-20 09:56 | Day surgery (SDC) | payer OTHER | END 2023-01-20 12:10 | disposition home or self-care (01) | LOC: ULT 09:56 | PROVIDERS: ATTEND Internal Medicine Gastroenterology | DX: K74.60 Unspecified cirrhosis of liver (principal); R18.8 Other ascites | CPT/HCPCS: 49083 ==

== ENCOUNTER 2023-01-27 09:47 | Day surgery (SDC) | payer OTHER ==
[2022-12-30 12:47] VITALS: TEMP 98.1
[2023-01-27 09:53] LABS: #Eosinphils 0.1 thou/uL (0.0-0.7); #Monocytes 0.4 thou/uL (0.11-0.59); #Neutrophils 2.2 thou/uL (1.40-6.50); %Basophils 0.3 % (0.0-1.0); %Lymphocytes 15.2 % (21.0-51.0); %Monocytes 12.2 % (0.0-10.0); Hematocrit 31.8 % (42.0-52.0); Mean Corpuscular HGB CONC 34.6 g/dL (32.0-36.0); Mean Corpuscular Hemoglobin 33.1 pg (27.0-31.0); Mean Corpuscular Volume 95.8 fl (78.0-98.0); Mean Platelet Volume 10.4 fL (7.4-10.4); RBC Distribution Width 15.1 % (11.5-14.5); Red Blood Cell (RBC) Count 3.32 mill/uL (4.70-6.10); White Blood Cell (WBC) Count 3.3 10x3/uL (4.8-10.8)
[2023-01-27 10:12] LABS: Platelet Count 76 10x3/uL (130-400)
[2023-01-27] MEDS ORDERED: Lidocaine 1% PF 5 ML VIAL ONE (10:25)
[2023-01-27] MEDS ORDERED: Sodium Bicarbonate 2.5 MEQ/5 ML VIAL ONE (10:25)
[2023-01-27] MEDS ORDERED: Albumin 25% 100 ML ONE (10:25)
[2023-01-27 10:27] LABS: INR-International Normal Ratio 1.5; Prothrombin Time 18.5 sec (12.0-14.7)
[2023-01-27 10:28] LABS: PTT 34.8 sec (22.9-36.1)
[2023-01-27] MEDS ORDERED: Albumin 25% 25 GM/100 ML BOT IVPB SCH (11:15)
[2023-01-27 15:37] VITALS: BP 109/60
== END 2023-01-27 12:00 | disposition home or self-care (01) ==
LOC: ULT 09:47
PROVIDERS: ATTEND Internal Medicine Gastroenterology
PROC: 0W9G3ZZ Drainage of Peritoneal Cavity, Percutaneous Approach (ICD-10-PCS; principal; 2023-01-27)
DX: R18.8 Other ascites (principal)
CPT/HCPCS: 49083; 85025; 85610; 85730; P9047

== ENCOUNTER 2023-02-02 14:09 | Outpatient (CLI) | payer OTHER | END 2023-02-02 14:10 | disposition home or self-care (01) | LOC: ULT 14:09 | PROVIDERS: ATTEND Internal Medicine Gastroenterology | DX: I85.01 Esophageal varices with bleeding (principal); K75.89 Other specified inflammatory liver diseases; K74.69 Other cirrhosis of liver; K76.82 Hepatic encephalopathy; R18.8 Other ascites; I81 Portal vein thrombosis; M62.50 Muscle wasting and atrophy, not elsewhere classified, unspecified site; R16.1 Splenomegaly, not elsewhere classified; K42.9 Umbilical hernia without obstruction or gangrene; K80.20 Calculus of gallbladder without cholecystitis without obstruction; K82.8 Other specified diseases of gallbladder | CPT/HCPCS: 76700 ==

== ENCOUNTER → 2023-02-03 | Day surgery (SDC) | payer OTHER | LOC: ULT 09:45 | PROVIDERS: ATTEND Internal Medicine Gastroenterology | DX: R18.8 Other ascites (principal) | CPT/HCPCS: 49083 ==

== ENCOUNTER → 2023-02-18 | Day surgery (SDC) | payer OTHER | LOC: ULT 11:44 | PROVIDERS: ATTEND Internal Medicine Gastroenterology | PROC: 0W9G3ZZ Drainage of Peritoneal Cavity, Percutaneous Approach (ICD-10-PCS; principal; 2023-02-18) | DX: R18.8 Other ascites (principal) | CPT/HCPCS: 49083; P9047 ==

== ENCOUNTER 2023-02-24 09:45 | Day surgery (SDC) | payer OTHER ==
[2023-02-24] MEDS ORDERED: Albumin 25% 200 ML ONE (10:03)
[2023-02-24] MEDS ORDERED: Sodium Bicarbonate 2.5 MEQ/5 ML VIAL ONE (10:03)
[2023-02-24] MEDS ORDERED: Lidocaine 1% PF 5 ML VIAL ONE (10:03)
[2023-02-24 14:50] VITALS: BP 118/63; TEMP 98
== END 2023-02-24 11:45 | disposition home or self-care (01) ==
LOC: ULT 09:45
PROVIDERS: ATTEND Internal Medicine Gastroenterology
PROC: 0W9G30Z Drainage of Peritoneal Cavity with Drainage Device, Percutaneous Approach (ICD-10-PCS; principal; 2023-02-24)
DX: R18.8 Other ascites (principal)
CPT/HCPCS: 49083; P9047

== ENCOUNTER 2023-03-03 09:34 | Day surgery (SDC) | payer OTHER ==
[2023-03-03] MEDS ORDERED: Sodium Bicarbonate 2.5 MEQ/5 ML VIAL ONE (10:12)
[2023-03-03] MEDS ORDERED: Lidocaine 1% PF 5 ML VIAL ONE (10:12)
[2023-03-03] MEDS ORDERED: Albumin 25% 100 ML ONE (10:12)
[2023-03-03 10:55] VITALS: BMI 20.9
[2023-03-03 10:58] VITALS: BP 118/76; TEMP 98
[2023-03-03 11:14] LABS: #Eosinphils 0.1 thou/uL (0.0-0.7); #Monocytes 0.3 thou/uL (0.11-0.59); #Neutrophils 2.4 thou/uL (1.40-6.50); %Basophils 0.3 % (0.0-1.0); %Eosinophils 4.4 % (0.0-10.0); %Lymphocytes 10.4 % (21.0-51.0); %Monocytes 9.1 % (0.0-10.0); %Neutrophils 75.8 % (42.0-75.0); Hematocrit 34.6 % (42.0-52.0); Hemoglobin 11.9 g/dL (14.0-18.0); Mean Corpuscular HGB CONC 34.4 g/dL (32.0-36.0); Mean Corpuscular Volume 95.8 fl (78.0-98.0); Mean Platelet Volume 10.7 fL (7.4-10.4); RBC Distribution Width 14.5 % (11.5-14.5); Red Blood Cell (RBC) Count 3.61 mill/uL (4.70-6.10); White Blood Cell (WBC) Count 3.2 10x3/uL (4.8-10.8)
[2023-03-03 11:25] LABS: INR-International Normal Ratio 1.5
[2023-03-03 11:27] LABS: Platelet Count 77 10x3/uL (130-400)
[2023-03-03] MEDS ORDERED: FLU VACC QS2023-24(6MOS UP)/PF 60 MCG/0.5 ML SYRINGE IM ONE (18:00)
== END 2023-03-03 11:55 | disposition home or self-care (01) ==
LOC: ULT 09:34
PROVIDERS: ATTEND Internal Medicine Gastroenterology
PROC: 0W9G3ZZ Drainage of Peritoneal Cavity, Percutaneous Approach (ICD-10-PCS; principal; 2023-03-03)
DX: R18.8 Other ascites (principal)
CPT/HCPCS: 49083; 85025; 85610; P9047

== ENCOUNTER → 2023-03-10 | Day surgery (SDC) | payer OTHER ==
[~2023-03-10] MED LIST changes: +FLU VACC QS2023-24(6MOS UP)/PF 60 MCG/0.5 ML SYRINGE IM ONE; -Sodium Bicarbonate 2.5 MEQ/5 ML VIAL ONE
[2023-03-10 10:50] VITALS: BP 110/64; TEMP 97.6
== END ==
LOC: ULT 09:43
PROVIDERS: ATTEND Internal Medicine Gastroenterology
PROC: 0W9G3ZZ Drainage of Peritoneal Cavity, Percutaneous Approach (ICD-10-PCS; principal; 2023-03-10)
DX: R18.8 Other ascites (principal)
CPT/HCPCS: 49083; P9047

== ENCOUNTER 2023-03-17 09:46 | Day surgery (SDC) | payer OTHER ==
[2023-03-17] MEDS ORDERED: Lidocaine 1% PF 5 ML VIAL ONE (10:03)
[2023-03-17] MEDS ORDERED: Albumin 25% 100 ML ONE (10:03)
[2023-03-17] MEDS ORDERED: Sodium Bicarbonate 2.5 MEQ/5 ML VIAL ONE (10:03)
[2023-03-17] MEDS ORDERED: FLU VACC QS2023-24(6MOS UP)/PF 60 MCG/0.5 ML SYRINGE IM ONE (12:30)
== END 2023-03-17 11:40 | disposition home or self-care (01) ==
LOC: ULT 09:46
PROVIDERS: ATTEND Internal Medicine Gastroenterology
PROC: 0W9G30Z Drainage of Peritoneal Cavity with Drainage Device, Percutaneous Approach (ICD-10-PCS; principal; 2023-03-17)
DX: R18.8 Other ascites (principal)
CPT/HCPCS: 49083; 90471; 90686; G0008; P9047

== ENCOUNTER 2023-03-24 09:47 | Day surgery (SDC) | payer OTHER ==
[2023-03-24] MEDS ORDERED: Albumin 25% 100 ML ONE (10:19)
[2023-03-24] MEDS ORDERED: Lidocaine 1% PF 5 ML VIAL ONE (10:19)
[2023-03-24] MEDS ORDERED: Sodium Bicarbonate 2.5 MEQ/5 ML VIAL ONE (10:19)
== END 2023-03-24 11:30 | disposition home or self-care (01) ==
LOC: ULT 09:47
PROVIDERS: ATTEND Internal Medicine Gastroenterology
PROC: 0W9G3ZZ Drainage of Peritoneal Cavity, Percutaneous Approach (ICD-10-PCS; principal; 2023-03-24)
DX: R18.8 Other ascites (principal)
CPT/HCPCS: 49083; P9047

== ENCOUNTER 2023-03-31 09:48 | Day surgery (SDC) | payer MEDICARE, MEDICAID ==
[2023-03-31] MEDS ORDERED: Albumin 25% 100 ML ONE (10:16)
[2023-03-31] MEDS ORDERED: Lidocaine 1% PF 5 ML VIAL ONE (10:17)
[2023-03-31] MEDS ORDERED: Sodium Bicarbonate 2.5 MEQ/5 ML VIAL ONE (10:17)
[2023-03-31 12:03] VITALS: BP 118/76; TEMP 97.7
[2023-03-31] MEDS ORDERED: FLU VACC QS2023-24(6MOS UP)/PF 60 MCG/0.5 ML SYRINGE IM ONE (12:30)
== END 2023-03-31 12:03 | disposition home or self-care (01) ==
LOC: ULT 09:48
PROVIDERS: ATTEND Internal Medicine Gastroenterology
PROC: 0W9G3ZZ Drainage of Peritoneal Cavity, Percutaneous Approach (ICD-10-PCS; principal; 2023-03-31)
DX: R18.8 Other ascites (principal)
CPT/HCPCS: 49083; P9047

== ENCOUNTER 2023-04-07 09:47 | Day surgery (SDC) | payer MEDICARE, MEDICAID ==
[2023-04-07 09:59] LABS: #Eosinphils 0.1 thou/uL (0.0-0.7); #Monocytes 0.5 thou/uL (0.11-0.59); #Neutrophils 4.7 thou/uL (1.40-6.50); %Basophils 0.3 % (0.0-1.0); %Eosinophils 1.8 % (0.0-10.0); %Lymphocytes 10.2 % (21.0-51.0); %Monocytes 7.9 % (0.0-10.0); %Neutrophils 79.6 % (42.0-75.0); Hematocrit 32.4 % (42.0-52.0); Hemoglobin 10.9 g/dL (14.0-18.0); Mean Corpuscular HGB CONC 33.6 g/dL (32.0-36.0); Mean Corpuscular Hemoglobin 32.6 pg (27.0-31.0); Platelet Count 100 10x3/uL (130-400); RBC Distribution Width 14.4 % (11.5-14.5); Red Blood Cell (RBC) Count 3.34 mill/uL (4.70-6.10)
[2023-04-07] MEDS ORDERED: Sodium Bicarbonate 2.5 MEQ/5 ML SDV ONE (10:12)
[2023-04-07] MEDS ORDERED: Lidocaine 1% PF 5 ML VIAL ONE (10:12)
[2023-04-07] MEDS ORDERED: Albumin 25% 100 ML ONE (10:12)
[2023-04-07 10:43] LABS: INR-International Normal Ratio 1.5; PTT 31.3 sec (22.9-36.1); Prothrombin Time 18.9 sec (12.0-14.7)
[2023-04-07 11:40] VITALS: BP 122/72; TEMP 98.4
[2023-04-07] MEDS ORDERED: FLU VACC QS2023-24(6MOS UP)/PF 60 MCG/0.5 ML SYRINGE IM ONE (13:00)
== END 2023-04-07 11:35 | disposition home or self-care (01) ==
LOC: ULT 09:47
PROVIDERS: ATTEND Internal Medicine Gastroenterology
PROC: 0W9G30Z Drainage of Peritoneal Cavity with Drainage Device, Percutaneous Approach (ICD-10-PCS; principal; 2023-04-07)
DX: Z23 Encounter for immunization (principal); R18.8 Other ascites
CPT/HCPCS: 49083; 85025; 85610; 85730; 90686; G0008; P9047; 36415; 90471

== ENCOUNTER → 2023-04-14 | Day surgery (SDC) | payer OTHER ==
[~2023-04-14] MED LIST changes: +Sodium Bicarbonate 2.5 MEQ/5 ML VIAL ONE
== END ==
LOC: ULT 09:45
PROVIDERS: ATTEND Internal Medicine Gastroenterology
PROC: 0W9G30Z Drainage of Peritoneal Cavity with Drainage Device, Percutaneous Approach (ICD-10-PCS; principal; 2023-04-14)
DX: R18.8 Other ascites (principal)
CPT/HCPCS: 49083; P9047

== ENCOUNTER 2023-04-21 09:46 | Day surgery (SDC) | payer MEDICAID, OTHER ==
[2023-04-21] MEDS ORDERED: Lidocaine 1% PF 5 ML VIAL ONE (10:33)
[2023-04-21] MEDS ORDERED: Albumin 25% 100 ML ONE (10:33)
[2023-04-21] MEDS ORDERED: Sodium Bicarbonate 2.5 MEQ/5 ML VIAL ONE (10:33)
[2023-04-21] MEDS ORDERED: Albumin 25% 25 GM/100 ML BOT IVPB SCH (11:15)
[2023-04-21 13:34] VITALS: BP 112/59
== END 2023-04-21 12:15 | disposition home or self-care (01) ==
LOC: ULT 09:46
PROVIDERS: ATTEND Internal Medicine Gastroenterology
DX: R18.8 Other ascites (principal)
CPT/HCPCS: 49083; P9047

== ENCOUNTER 2023-04-28 09:50 | Day surgery (SDC) | payer MEDICARE, MEDICAID ==
[2023-04-28] MEDS ORDERED: Sodium Bicarbonate 2.5 MEQ/5 ML VIAL ONE (09:54)
[2023-04-28] MEDS ORDERED: Albumin 25% 100 ML ONE (09:54)
[2023-04-28] MEDS ORDERED: Lidocaine 1% PF 5 ML VIAL ONE (09:54)
== END 2023-04-28 11:10 | disposition home or self-care (01) ==
LOC: ULT 09:50
PROVIDERS: ATTEND Internal Medicine Gastroenterology
PROC: 0W9G3ZZ Drainage of Peritoneal Cavity, Percutaneous Approach (ICD-10-PCS; principal; 2023-04-28)
DX: R18.8 Other ascites (principal)
CPT/HCPCS: 49083; P9047

== ENCOUNTER 2023-05-05 09:34 | Day surgery (SDC) | payer MEDICARE, MEDICAID ==
[2023-05-05] MEDS ORDERED: Lidocaine 1% PF 5 ML VIAL ONE (09:45)
[2023-05-05] MEDS ORDERED: Albumin 25% 100 ML ONE (09:45)
[2023-05-05] MEDS ORDERED: Sodium Bicarbonate 2.5 MEQ/5 ML VIAL ONE (09:45)
[2023-05-05 10:54] VITALS: BP 121/79; TEMP 98.1
[2023-05-05] MEDS ORDERED: FLU VACC QS2023-24(6MOS UP)/PF 60 MCG/0.5 ML SYRINGE IM ONE (11:00)
== END 2023-05-05 11:00 | disposition home or self-care (01) ==
LOC: ULT 09:34
PROVIDERS: ATTEND Internal Medicine Gastroenterology
PROC: 0W9G3ZZ Drainage of Peritoneal Cavity, Percutaneous Approach (ICD-10-PCS; principal; 2023-05-05)
DX: R18.8 Other ascites (principal)
CPT/HCPCS: 49083; 90686; G0008; P9047; 90471

== ENCOUNTER 2023-05-19 09:42 | Day surgery (SDC) | payer MEDICARE, MEDICAID ==
[2023-05-19] MEDS ORDERED: Lidocaine 1% PF 5 ML VIAL ONE (09:53)
[2023-05-19] MEDS ORDERED: Albumin 25% 100 ML ONE (09:53)
[2023-05-19] MEDS ORDERED: Sodium Bicarbonate 2.5 MEQ/5 ML SDV ONE (09:53)
== END 2023-05-19 11:20 | disposition home or self-care (01) ==
LOC: ULT 09:42
PROVIDERS: ATTEND Internal Medicine Gastroenterology
PROC: 0W9G3ZZ Drainage of Peritoneal Cavity, Percutaneous Approach (ICD-10-PCS; principal; 2023-05-19)
DX: R18.8 Other ascites (principal)
CPT/HCPCS: 49083; P9047

== ENCOUNTER → 2023-06-02 | Day surgery (SDC) | payer MEDICARE, MEDICAID ==
[~2023-06-02] MED LIST changes: -FLU VACC QS2023-24(6MOS UP)/PF 60 MCG/0.5 ML SYRINGE IM ONE; +Sodium Bicarbonate 0.5 MEQ/ML SDV 10 ML ONE; -Sodium Bicarbonate 2.5 MEQ/5 ML VIAL ONE
== END ==
LOC: ULT 09:34
PROVIDERS: ATTEND Internal Medicine Gastroenterology
PROC: 0W9G3ZZ Drainage of Peritoneal Cavity, Percutaneous Approach (ICD-10-PCS; principal; 2023-06-02)
DX: R18.8 Other ascites (principal)
CPT/HCPCS: 49083; P9047

== ENCOUNTER 2023-06-08 09:27 | Outpatient (CLI) | payer MEDICARE, MEDICAID ==
[~2023-06-08 09:27] MED LIST changes: -Albumin 25% 100 ML ONE; +Iopamidol 370 76% 100 ML VIAL ONE; -Lidocaine 1% PF 5 ML VIAL ONE; -Sodium Bicarbonate 0.5 MEQ/ML SDV 10 ML ONE
== END 2023-06-08 09:28 | disposition home or self-care (01) ==
LOC: BICCT 09:27
PROVIDERS: ATTEND Internal Medicine Gastroenterology
DX: N18.9 Chronic kidney disease, unspecified (principal); K70.31 Alcoholic cirrhosis of liver with ascites; K76.82 Hepatic encephalopathy; I85.01 Esophageal varices with bleeding; D69.6 Thrombocytopenia, unspecified; E88.09 Other disorders of plasma-protein metabolism, not elsewhere classified; I81 Portal vein thrombosis; M62.84 Sarcopenia; K42.9 Umbilical hernia without obstruction or gangrene; K08.9 Disorder of teeth and supporting structures, unspecified; E80.6 Other disorders of bilirubin metabolism; D63.1 Anemia in chronic kidney disease; I82.890 Acute embolism and thrombosis of other specified veins; R16.1 Splenomegaly, not elsewhere classified; K76.6 Portal hypertension; K80.20 Calculus of gallbladder without cholecystitis without obstruction; K43.9 Ventral hernia without obstruction or gangrene; Z76.82 Awaiting organ transplant status; Z87.898 Personal history of other specified conditions
CPT/HCPCS: 74170; 82565

== ENCOUNTER 2023-06-09 09:43 | Day surgery (SDC) | payer MEDICARE, MEDICAID ==
[2023-06-09] MEDS ORDERED: Lidocaine 1% PF 5 ML VIAL ONE (10:04)
[2023-06-09] MEDS ORDERED: Albumin 25% 100 ML ONE (10:04)
[2023-06-09] MEDS ORDERED: Sodium Bicarbonate 0.5 MEQ/ML SDV 10 ML ONE (10:05)
[2023-06-09 13:33] VITALS: BP 131/83; TEMP 98.3
== END 2023-06-09 12:15 | disposition home or self-care (01) ==
LOC: ULT 09:43
PROVIDERS: ATTEND Internal Medicine Gastroenterology
PROC: 0W9G3ZZ Drainage of Peritoneal Cavity, Percutaneous Approach (ICD-10-PCS; principal; 2023-06-09)
DX: R18.8 Other ascites (principal)
CPT/HCPCS: 49083; P9047

== ENCOUNTER 2023-06-16 09:35 | Day surgery (SDC) | payer MEDICARE, MEDICAID ==
[2023-06-16 09:44] LABS: #Eosinphils 0.1 thou/uL (0.0-0.7); #Monocytes 0.4 thou/uL (0.11-0.59); #Neutrophils 4.4 thou/uL (1.40-6.50); %Basophils 0.2 % (0.0-1.0); %Eosinophils 2.5 % (0.0-10.0); %Lymphocytes 10.2 % (21.0-51.0); %Monocytes 7.5 % (0.0-10.0); %Neutrophils 79.2 % (42.0-75.0); Hematocrit 32.5 % (42.0-52.0); Hemoglobin 10.9 g/dL (14.0-18.0); Mean Corpuscular HGB CONC 33.5 g/dL (32.0-36.0); Mean Corpuscular Hemoglobin 31.4 pg (27.0-31.0); Mean Corpuscular Volume 93.7 fl (78.0-98.0); Mean Platelet Volume 9.8 fL (7.4-10.4); Platelet Count 125 10x3/uL (130-400); RBC Distribution Width 15.4 % (11.5-14.5); Red Blood Cell (RBC) Count 3.47 mill/uL (4.70-6.10); White Blood Cell (WBC) Count 5.6 10x3/uL (4.8-10.8)
[2023-06-16 10:00] LABS: INR-International Normal Ratio 1.5; Prothrombin Time 18.5 sec (12.0-14.7)
[2023-06-16] MEDS ORDERED: Albumin 25% 100 ML ONE (10:03)
[2023-06-16 11:19] VITALS: BP 124/84; TEMP 98.4
[2023-06-16] MEDS ORDERED: FLU VACC QS2023-24(6MOS UP)/PF 60 MCG/0.5 ML SYRINGE IM ONE (15:00)
== END 2023-06-16 11:15 | disposition home or self-care (01) ==
LOC: ULT 09:35
PROVIDERS: ATTEND Internal Medicine Gastroenterology
PROC: 0W9G3ZX Drainage of Peritoneal Cavity, Percutaneous Approach, Diagnostic (ICD-10-PCS; principal; 2023-06-16)
DX: R18.8 Other ascites (principal)
CPT/HCPCS: 49083; 85025; 85610; 85730; P9047; 36415

== ENCOUNTER → 2023-06-23 | Day surgery (SDC) | payer MEDICAID, MEDICARE ==
[~2023-06-23] MED LIST changes: +Albumin 25% 100 ML ONE; -Iopamidol 370 76% 100 ML VIAL ONE; +Lidocaine 1% PF 5 ML VIAL ONE
== END ==
LOC: ULT 09:42
PROVIDERS: ATTEND Internal Medicine Gastroenterology
PROC: 0W9G30Z Drainage of Peritoneal Cavity with Drainage Device, Percutaneous Approach (ICD-10-PCS; principal; 2023-06-23)
DX: R18.8 Other ascites (principal)
CPT/HCPCS: 49083; P9047

== ENCOUNTER 2023-06-27 21:26 | Inpatient (IN) | payer MEDICARE, OTHER ==
[~2023-06-27 21:26] MED LIST changes: -Albumin 25% 100 ML ONE; +Iopamidol 370 76% 100 ML VIAL ONE; -Lidocaine 1% PF 5 ML VIAL ONE
[2023-06-27 22:54] LABS: #Eosinphils 0.1 thou/uL (0.0-0.7); #Monocytes 0.6 thou/uL (0.11-0.59); #Neutrophils 5.6 thou/uL (1.40-6.50); %Basophils 0.3 % (0.0-1.0); %Eosinophils 1.3 % (0.0-10.0); %Lymphocytes 6.2 % (21.0-51.0); %Monocytes 9.2 % (0.0-10.0); %Neutrophils 82.9 % (42.0-75.0); Hemoglobin 10.2 g/dL (14.0-18.0); Mean Corpuscular HGB CONC 35.2 g/dL (32.0-36.0); Mean Corpuscular Hemoglobin 31.9 pg (27.0-31.0); Mean Corpuscular Volume 90.6 fl (78.0-98.0); Mean Platelet Volume 10.6 fL (7.4-10.4); Platelet Count 127 10x3/uL (130-400); RBC Distribution Width 14.9 % (11.5-14.5); White Blood Cell (WBC) Count 6.8 10x3/uL (4.8-10.8)
[2023-06-27 23:16] LABS: ALT (SGPT) 15 U/L (8-55); AST (SGOT) 34 U/L (5-34); Albumin 2.5 g/dL (3.5-5.0); Alkaline Phosphatase 189 U/L (40-110); Anion Gap 13 mmol/L (10-20); BUN (Urea Nitrogen) 38 mg/dL (8.4-25.7); Calc. Creatinine Clearance 0 mL/min (70-130); Calcium 8.1 mg/dL (7.8-10.44); Carbon Dioxide 15 mmol/L (22-29); Chloride 105 mmol/L (98-107); Estimated GFR 59; Globulin 3.5 g/dL (2.4-3.5); Glucose 119 mg/dL (70-105); Lipase 38 U/L (8-78); Potassium 4.7 mmol/L (3.5-5.1); Sodium 128 mmol/L (136-145)
[2023-06-28] MEDS ORDERED: metroNIDAZOLE 500 MG (100 mL) BAG ONE (01:27)
[2023-06-28] MEDS ORDERED: Piperacillin/Tazobactam 3.375 GM VIAL ONE (01:27)
[2023-06-28] MEDS ORDERED: Sodium Chloride 0.9% 100 ML ONE (01:28)
[2023-06-28 02:28] LABS: INR-International Normal Ratio 1.6; PTT 40.8 sec (22.9-36.1); Prothrombin Time 19.4 sec (12.0-14.7)
[2023-06-28 07:39] VITALS: BMI 25.3
[2023-06-28] MEDS ORDERED: Ondansetron PF 4 MG/2 ML Vial IVP PRN (09:36)
[2023-06-28] MEDS ORDERED: Ondansetron ODT 4 MG TAB PO PRN (09:36)
[2023-06-28] MEDS: Lactated Ringer's 1,000 ML IV SCH (12:46)
[2023-06-28] MEDS: Lactulose 20 GM (30 mL) UDCUP PO SCH (20:22)
[2023-06-28] MEDS: cefTRIAXone\\ROCEPHIN 1 GM in Sodium Chloride 0.9% 100 ML IVPB SCH (20:22)
[2023-06-28] MEDS: Rifaximin 550 MG TAB PO SCH (20:24)
[2023-06-29] MEDS: Furosemide 40 MG TAB PO SCH (09:15)
[2023-06-29] MEDS: Folic Acid 1 MG TAB PO SCH (09:15)
[2023-06-29] MEDS: Carvedilol 3.125 MG TAB PO SCH (09:15)
[2023-06-29] MEDS: Ferrous Sulfate 325 MG TAB PO SCH (09:15)
[2023-06-29] MEDS: Spironolactone 100 MG TAB PO SCH (09:15)
[2023-06-29 15:44] VITALS: BP 111/69; TEMP 98
== END 2023-06-29 17:08 | disposition short-term general hospital (02) | DRG 432 ==
LOC: ERS 21:26 → ERHOLD 06-28 01:23 → SJJU 06-28 01:39 → OBSVTOIN 06-28 12:54
PROVIDERS: ADMIT Specialist; ATTEND Specialist
DX: K70.31 Alcoholic cirrhosis of liver with ascites (principal); I81 Portal vein thrombosis; N17.9 Acute kidney failure, unspecified; K42.9 Umbilical hernia without obstruction or gangrene; Z79.899 Other long term (current) drug therapy; N18.30 Chronic kidney disease, stage 3 unspecified; I12.9 Hypertensive chronic kidney disease with stage 1 through stage 4 chronic kidney disease, or unspecified chronic kidney disease; Z98.890 Other specified postprocedural states; I86.8 Varicose veins of other specified sites
CPT/HCPCS: 36415; 71045; 74177; 80053; 83690; 85025; 85610; 85730; 86850; 86900; 86901; 96365; 96367; G0378; J0696; J2543; J3490; J7120; Q9967